=== PATIENT | female | born 1990 | race Caucasian/White ===

== ENCOUNTER 2021-09-16 20:52 | Emergency (ER) | payer OTHER ==
[2021-09-16 21:13] VITALS: BP 123/76; PULSE 86; TEMP 99.5; BMI 34.7
[2021-09-18 17:10] LABS: SARS-CoV-2 NAA Not Detected (Not Detected)
== END 2021-09-16 22:55 | disposition home or self-care (01) ==
LOC: JER 20:52
DX: J06.9 Acute upper respiratory infection, unspecified (principal); J09.X2 Influenza due to identified novel influenza A virus with other respiratory manifestations
CPT/HCPCS: 87804; 99283-25; C9803-CS; U0003; U0005